=== PATIENT | male | born 1980 | race Caucasian/White ===

== ENCOUNTER 2018-04-12 09:35 | Emergency (ER) | payer OTHER ==
[~2018-04-12] VITALS: Ht 182.9 cm; Wt 84.4 kg
[2018-04-12 09:35] VITALS: BP_SYST 152
--- NOTE | 2018-04-12 09:37 | NUR ---
Pt states he was out of town a week ago and had unprotected sex and now has white penile discharge. Pt states he sometimes gets yeast infections beneath foreskin. Denies lesions to genitalia.
--- NOTE | 2018-04-12 09:37 | NUR ---
BROUGHT BACK TO BED #3 AND TRIAGED. WILL ASSUME CARE. DR TRINH AT BEDSIDE UPON ARRIVAL TO ER.
--- NOTE | 2018-04-12 09:45 | NUR ---
Dr. Sher at bedside.
[2018-04-12] MEDS ORDERED: AZITHROMYCIN 250 MG TABLET PO ONE (10:00)
[2018-04-12] MEDS ORDERED: cefTRIAXone 500 MG in LIDOCAINE 1%, 20 ML MDV 1 ML IM ONE (10:00)
[2018-04-12 10:12] LABS: BILIRUBIN,URINE NEGATIVE (NEGATIVE); CLARITY/URINE CLEAR (CLEAR); COLOR,URINE YELLOW (YELLOW); GLUCOSE,URINE NEGATIVE (NEGATIVE); KETONES,URINE NEGATIVE (NEGATIVE); LEUKOCYTE ESTERASE ,URINE TRACE (NEGATIVE); NITRITE, URINE NEGATIVE (NEGATIVE); PROTEIN URINE TRACE (NEGATIVE); UROBILINOGEN,URINE 0.2 (0.2-1.0)
[2018-04-12 10:14] LABS: BLOOD, URINE TRACE (NEGATIVE)
[2018-04-12 10:32] LABS: BACTERIA,URINE FEW /HPF (None Seen); MUCUS,URINE None Seen /LPF (None Seen); YEAST,URINE None Seen /HPF (None Seen)
[2018-04-12 10:35] VITALS: BP_SYST 128
--- NOTE | 2018-04-12 10:35 | NUR ---
Patient given written and verbal discharge instructions and verbalizes understanding. ER MD discussed with patient the results and treatment provided. Patient in stable condition. ID arm band removed. Patient educated on pain management and to follow up with PMD. Pain Scale 0/10. Opportunity for questions provided and answered. Medication side effect fact sheet provided.
[2018-04-14 09:07] LABS: NEISSERIA GONORRHOEAE NAA Negative (Negative)
== END 2018-04-12 10:35 | disposition home or self-care (01) ==
LOC: SED 09:35
DX: A64 Unspecified sexually transmitted disease (principal)
CPT/HCPCS: 81000; 87491; 87591; 96372; 99284; J0696; Q0144